=== PATIENT | female | born 1985 | race Caucasian/White ===

== ENCOUNTER 2018-07-03 15:23 | Emergency (ER) | payer OTHER ==
[~2018-07-03] VITALS: Ht 157.5 cm; Wt 68.0 kg
[2018-07-03 15:38] VITALS: Ht 157.5 cm; Wt 68.0 kg
[2018-07-03 17:00] VITALS: BP 132/80
== END 2018-07-03 17:00 | disposition home or self-care (01) ==
LOC: ED 15:23
DX: R10.30 Lower abdominal pain, unspecified (principal); V89.2XXA Person injured in unspecified motor-vehicle accident, traffic, initial encounter; Y93.I9 Activity, other involving external motion; Y92.413 State road as the place of occurrence of the external cause; Y99.8 Other external cause status

== ENCOUNTER 2018-09-16 21:11 | Inpatient (IN) | payer OTHER ==
[~2018-09-16] VITALS: Ht 157.5 cm; Wt 68.3 kg
[2018-09-16 21:41] VITALS: Ht 157.5 cm; Wt 68.3 kg
[2018-09-17 00:05] LABS: CALCIUM 9.2 mg/dL (8.5-10.1); CARBON DIOXIDE 28.8 mmol/L (21-32); CHLORIDE SERUM 102 mmol/L (98-107); CREATININE SERUM 0.7 mg/dL (0.6-1.0); GFR1 > 60 mL/min; GLUCOSE SERUM 134 mg/dL (74-106); POTASSIUM SERUM 3.8 mmol/L (3.5-5.1); SODIUM SERUM 138 mmol/L (136-145)
[2018-09-17 00:12] LABS: ALKALINE PHOSPHATASE 178 U/L (46-116); ALT/SGPT 290 U/L (14-59); AST/SGOT 177 U/L (15-37); BILIRUBIN TOTAL 1.7 mg/dL (0.20-1.00); TOTAL PROTEIN, SERUM 8.3 g/dL (6.4-8.2)
[2018-09-17 00:16] LABS: PLATELET COUNT 279 x10^3mcL (130-400); RED CELL DISTRIBUTION WIDTH 13.4 % (11.5-14.5)
[2018-09-17 00:18] LABS: BASOPHIL % 0 % (0-2)
[2018-09-17 00:32] LABS: AMYLASE 2194 U/L (25-115)
[2018-09-17 00:48] LABS: LIPASE 27820 IU/L (73-393)
[2018-09-17 03:15] LABS: PHOSPHOROUS 2.6 mg/dL (2.5-4.9)
[2018-09-17 03:16] LABS: CHOLESTEROL/HDL RATIO 3.3
[2018-09-17 04:32] VITALS: BP 108/62
[2018-09-17 07:16] LABS: ALBUMIN 3.5 g/dL (3.4-5.0); ALKALINE PHOSPHATASE 163 U/L (46-116); ALT/SGPT 252 U/L (14-59); AST/SGOT 138 U/L (15-37); BASOPHIL % 0.3 % (0-2); BILIRUBIN TOTAL 2.1 mg/dL (0.20-1.00); CALCIUM 8.7 mg/dL (8.5-10.1); CARBON DIOXIDE 26.5 mmol/L (21-32); CHLORIDE SERUM 105 mmol/L (98-107); CREATININE SERUM 0.6 mg/dL (0.6-1.0); GFR1 > 60 mL/min; GLUCOSE SERUM 123 mg/dL (74-106); PHOSPHOROUS 3.3 mg/dL (2.5-4.9); PLATELET COUNT 258 x10^3mcL (130-400); RED CELL DISTRIBUTION WIDTH 13.8 % (11.5-14.5); SODIUM SERUM 139 mmol/L (136-145); TOTAL PROTEIN, SERUM 7.2 g/dL (6.4-8.2)
[2018-09-17 07:50] VITALS: BP 101/66
[2018-09-17 08:34] LABS: LIPASE 7720 IU/L (73-393)
[2018-09-17 10:15] LABS: UA SPECIFIC GRAVITY >=1.030 (1.005-1.035); microscopic required? YES; urine erythrocyte 1+ (NEGATIVE)
[2018-09-17 10:25] LABS: AMPHETAMINE QUAL UR NONE DETECTED (See below)
[2018-09-17 17:16] VITALS: BP 107/67
[2018-09-17 21:03] VITALS: BP 104/58
[2018-09-18 06:31] VITALS: BP 101/56
[2018-09-18 07:23] LABS: CALCIUM 8.4 mg/dL (8.5-10.1); CARBON DIOXIDE 23.4 mmol/L (21-32); CHLORIDE SERUM 105 mmol/L (98-107); CREATININE SERUM 0.6 mg/dL (0.6-1.0); GFR1 > 60 mL/min; GLUCOSE SERUM 71 mg/dL (74-106); SODIUM SERUM 138 mmol/L (136-145)
[2018-09-18 07:35] LABS: BASOPHIL % 0.3 % (0-2); PLATELET COUNT 257 x10^3mcL (130-400); RED CELL DISTRIBUTION WIDTH 14.1 % (11.5-14.5)
[2018-09-18 07:40] LABS: BILIRUBIN DIRECT 0.4 mg/dL (0.0-0.2); BILIRUBIN TOTAL 0.84 mg/dL (0.20-1.00); TOTAL PROTEIN, SERUM 7.1 g/dL (6.4-8.2)
[2018-09-18 07:51] LABS: ALBUMIN 3.3 g/dL (3.4-5.0)
[2018-09-18 10:39] VITALS: BP 104/60
[2018-09-18 17:22] VITALS: BP 115/52
[2018-09-18 21:04] VITALS: BP 107/65
[2018-09-19 05:43] VITALS: BP 114/55
[2018-09-19 06:13] LABS: BASOPHIL % 0.3 % (0-2); PLATELET COUNT 241 x10^3mcL (130-400); RED CELL DISTRIBUTION WIDTH 13.8 % (11.5-14.5)
[2018-09-19 06:40] LABS: CARBON DIOXIDE 27.8 mmol/L (21-32); CHLORIDE SERUM 104 mmol/L (98-107); CREATININE SERUM 0.5 mg/dL (0.6-1.0); GFR1 > 60 mL/min; GLUCOSE SERUM 111 mg/dL (74-106); LIPASE 869 IU/L (73-393); POTASSIUM SERUM 3.8 mmol/L (3.5-5.1); SODIUM SERUM 138 mmol/L (136-145)
[2018-09-19 06:47] LABS: AMYLASE 195 U/L (25-115)
[2018-09-19 09:14] VITALS: BP 113/47
[2018-09-19 13:49] LABS: CARBON DIOXIDE 28.6 mmol/L (21-32); CHLORIDE SERUM 105 mmol/L (98-107); CREATININE SERUM 0.6 mg/dL (0.6-1.0); GFR1 > 60 mL/min; GLUCOSE SERUM 131 mg/dL (74-106); POTASSIUM SERUM 4.2 mmol/L (3.5-5.1); SODIUM SERUM 139 mmol/L (136-145)
[2018-09-19 13:54] LABS: ALKALINE PHOSPHATASE 135 U/L (46-116); ALT/SGPT 125 U/L (14-59); AST/SGOT 42 U/L (15-37); BILIRUBIN TOTAL 0.36 mg/dL (0.20-1.00); TOTAL PROTEIN, SERUM 6.8 g/dL (6.4-8.2)
[2018-09-19 13:56] LABS: ALBUMIN 3.1 g/dL (3.4-5.0)
[2018-09-19 13:57] VITALS: BP 104/56
[2018-09-19 17:08] VITALS: BP 106/67
[2018-09-19 22:21] VITALS: BP 109/67
[2018-09-20 05:17] VITALS: BP 105/50
[2018-09-20 06:36] LABS: BASOPHIL % 0.4 % (0-2); PLATELET COUNT 249 x10^3mcL (130-400); RED CELL DISTRIBUTION WIDTH 13.5 % (11.5-14.5)
[2018-09-20 06:48] LABS: ALKALINE PHOSPHATASE 120 U/L (46-116); ALT/SGPT 114 U/L (14-59); AST/SGOT 38 U/L (15-37); BILIRUBIN TOTAL 0.38 mg/dL (0.20-1.00); CARBON DIOXIDE 27.7 mmol/L (21-32); CHLORIDE SERUM 104 mmol/L (98-107); CREATININE SERUM 0.6 mg/dL (0.6-1.0); GFR1 > 60 mL/min; GLUCOSE SERUM 119 mg/dL (74-106); LIPASE 264 IU/L (73-393); POTASSIUM SERUM 3.9 mmol/L (3.5-5.1); SODIUM SERUM 139 mmol/L (136-145); TOTAL PROTEIN, SERUM 6.6 g/dL (6.4-8.2)
[2018-09-20 09:11] VITALS: BP 127/61
[2018-09-20 15:53] VITALS: BP 127/61
[2018-09-20 16:45] VITALS: BP 115/76
== END 2018-09-20 18:07 | disposition home or self-care (01) | DRG 263 ==
LOC: ED 21:11 → MU 09-17 01:38
PROVIDERS: Emergency Medicine; Radiology Diagnostic Radiology; Surgery; ADMIT Family Medicine
PROC: 0F798ZZ Dilation of Common Bile Duct, Via Natural or Artificial Opening Endoscopic (ICD-10-PCS; 2018-09-18)
PROC: BF111ZZ Fluoroscopy of Biliary and Pancreatic Ducts using Low Osmolar Contrast (ICD-10-PCS; 2018-09-18)
PROC: 0FT44ZZ Resection of Gallbladder, Percutaneous Endoscopic Approach (ICD-10-PCS; principal; 2018-09-19 10:30)
DX: K80.70 Calculus of gallbladder and bile duct without cholecystitis without obstruction (principal); K85.10 Biliary acute pancreatitis without necrosis or infection; E44.0 Moderate protein-calorie malnutrition; E66.9 Obesity, unspecified; E78.00 Pure hypercholesterolemia, unspecified; K29.70 Gastritis, unspecified, without bleeding; K82.8 Other specified diseases of gallbladder; Z68.27 Body mass index [BMI] 27.0-27.9, adult; G43.909 Migraine, unspecified, not intractable, without status migrainosus; R74.0 Nonspecific elevation of levels of transaminase and lactic acid dehydrogenase [LDH]
CPT/HCPCS: 43260; 90658; 94150; C1769; C9113; J0690; J1170; J1610; J2250; J2405; J3010; J3490; J7030; Q0092; Q9967